=== PATIENT | male | born 1960 | race Hispanic/Latino ===

== ENCOUNTER 2017-02-01 10:51 | Emergency (ER) | payer OTHER ==
[2017-02-01 11:45] VITALS: TEMP 97.6; O2SAT 98
[2017-02-01 11:46] VITALS: RESP 18
[2017-02-01 11:47] VITALS: BMI 31.3
--- NOTE | 2017-02-01 11:54 | ED PDOC ---
Arrival/HPI - General Chief Complaint: Medical Clearance Time Seen by Provider: 02/01/17 11:45 Historian: Patient - History of Present Illness Narrative History of Present Illness (Text): 02/01/17 11:52 57 year old male with a past medical history that includes hypertension presents to the emergency department for repeat lab work after low platelet count at PMD yesterday. He states he had routine blood work done and was told his platelet count was 9000. 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 Patient states his PMD told him to come to the Emergency Department for further evaluation. Denies bleeding, bruising, or pain. PMD: Dr. Jimenez Modifying Factors (Text): None Associated Symptoms (Text): None Past Medical History - Provider Review Nursing Documentation Reviewed: Yes - Infectious Disease Hx of Infectious Diseases: None - Cardiac Hx Hypertension: Yes - Psychiatric Hx Substance Use: No - Surgical History Hx Splenectomy: Yes - Anesthesia Hx Anesthesia: Yes Hx Anesthesia Reactions: No Hx Malignant Hyperthermia: No Family/Social History - Physician Review Nursing Documentation Reviewed: Yes Family/Social History: Unknown Family HX Smoking Status: Heavy Smoker > 10 Cigarettes Daily Hx Alcohol Use: Yes Frequency of alcohol use: Socially Hx Substance Use: No Allergies/Home Meds Allergies/Adverse Reactions: Allergies No Known Allergies Allergy (Verified 11/06/16 08:44) Home Medications: Home Meds Medication Instructions Recorded Confirmed Lisinopril [Zestril] 10 mg PO DAILY 11/06/16 02/01/17 amLODIPine [Norvasc] 20 mg PO DAILY 11/06/16 02/01/17 Review of Systems - Review of Systems Eyes: absent: Vision Changes ENT: absent: Epistaxis Gastrointestinal: absent: Hematochezia, Hematemesis Genitourinary Male: absent: Hematuria Skin: absent: Rash Psychiatric: absent: Depression Physical Exam Vital Signs Reviewed: Yes Vital Signs Temp Pulse Resp BP Pulse Ox 02/01/17 12:39 79 18 135/76 98 02/01/17 11:45 97.6 F 87 18 137/82 98 02/01/17 11:37 97.6 F 87 19 137/82 98 Temperature: Afebrile Blood Pressure: Normal Pulse: Regular Respiratory Rate: Normal Appearance: Positive for: Well-Appearing, Non-Toxic, Comfortable Pain Distress: None Mental Status: Positive for: Alert and Oriented X 3 - Systems Exam Head: Present: Atraumatic, Normocephalic Pupils: Present: PERRL Extroacular Muscles: Present: EOMI Conjunctiva: Present: Normal Mouth: Present: Moist Mucous Membranes Neck: Present: Normal Range of Motion Respiratory/Chest: Present: Clear to Auscultation, Good Air Exchange. No: Respiratory Distress, Accessory Muscle Use Cardiovascular: Present: Regular Rate and Rhythm, Normal S1, S2. No: Murmurs Abdomen: Present: Normal Bowel Sounds. No: Tenderness, Distention, Peritoneal Signs Back: Present: Normal Inspection Upper Extremity: Present: Normal Inspection. No: Cyanosis, Edema Lower Extremity: Present: Normal Inspection. No: Edema Neurological: Present: GCS=15, CN II-XII Intact, Speech Normal Skin: Present: Warm, Dry, Normal Color. No: Rashes Psychiatric: Present: Alert, Oriented x 3, Normal Insight, Normal Concentration Medical Decision Making ED Course and Treatment: Impression: 57 year old male, pmhx hypertension, presents to the emergency department for repeat blood work after low platelet count at PMD yesterday. Differential diagnosis includes but is not limited to: Thrombocytopenia Plan: -- Platelet count manual -- Labs -- Reassess and disposition Progress Notes: 02/01/17 13:08 noted repeat thrombocytopenia, manual 55. pt unsure of previous levels outpt. pt denies any bleeding. pmd paged, unable to reach dr jimenez, as he is covered by dr hoover, who does not have access to outpt blood work. requested pt to be admitted. pt declines, AMA signed. understands risks Leaving Against Medical Advice (AMA): The patient is choosing to leave against medical advice. I have personally explained to the patient that choosing to do so may result in permanent bodily harm or . I have discussed at great length that without further evaluation and monitoring there may be unforeseen circumstances and/or deterioration causing permanent bodily harm or as a result of their choice. The patient is alert, oriented, and shows the mental capacity to make clear decisions regarding the patients health care at this time. The patient continues to wish to leave against medical advice. The patient has been advised that they should return to the emergency room immediately if they change their mind at any time, or if their condition begins to change or worsen in any way. - Lab Interpretations Lab Results: 02/01/17 12:00 02/01/17 12:00 Lab Results 02/01/17 12:40: Blood Type Confirm A POSITIVE 02/01/17 12:00: WBC 9.3, RBC 5.11, Hgb 16.1, Hct 46.4, MCV 90.8, MCH 31.5, MCHC 34.7, RDW 14.6 H, Plt Count 21 L*, Manual Plt Count 55 L*, Gran % 58.4, Lymph % (Auto) 22.7, [place] % (Auto) 14.6 H, Eos % (Auto) 3.4, Baso % (Auto) 0.9, Gran # 5.46, Lymph # 2.1, [place] # 1.4 H, Eos # 0.3, Baso # 0.08, Platelet Evaluation Low , PT 10.7, INR 0.99, APTT 28.7, Sodium 137, Potassium 4.2, Chloride 103, Carbon Dioxide 25, Anion Gap 13, BUN 16, Creatinine 0.7, Est GFR ( Amer) > 60, Est GFR (Non-Af Amer) > 60, Random Glucose 106, Calcium 9.4, Total Bilirubin 0.6 , AST 30, ALT 48, Alkaline Phosphatase 68, Total Protein 8.2, Albumin 4.3, Globulin 4.0, Albumin/Globulin Ratio 1.1, Blood Type A POSITIVE, Antibody Screen Negative, BBK History Checked No verified bt - Scribe Statement The provider has reviewed the documentation as recorded by the Jensen Smith Provider Scribe Attestation: All medical record entries made by the Jensen were at my direction and personally dictated by me. I have reviewed the chart and agree that the record accurately reflects my personal performance of the history, physical exam, medical decision making, and the department course for this patient. I have also personally directed, reviewed, and agree with the discharge instructions and disposition. Disposition/Present on Arrival - Present on Arrival Any Indicators Present on Arrival: No History of DVT/PE: No History of Uncontrolled Diabetes: No Urinary Catheter: No History of Decub. Ulcer: No History Surgical Site Infection Following: None - Disposition Have Diagnosis and Disposition been Completed?: Yes Diagnosis: Thrombocytopenia Disposition: AGAINST MEDICAL ADVICE Disposition Time: 13:10 Condition: UNKNOWN Discharge Instructions (ExitCare): Thrombocytopenia (ED) Additional Instructions: please follow up with your doctor/ and specialist. return to er with worsening symptoms or concerns. Referrals: Brad Jimenez MD [Primary Care Provider] - Follow up with primary Nadja Negrete MD [Staff Provider] - Follow up with primary
[2017-02-01 12:25] LABS: ADD MANUAL DIFF? NO
[2017-02-01 12:30] LABS: BASO # 0.08 K/mm3 (0.0-2.0); BASO % 0.9 % (0.0-3.0); EOS # 0.3 (0.0-0.7); EOS % 3.4 % (1.5-5.0); GRAN # 5.46 (1.4-6.5); GRAN % 58.4 % (50.0-68.0); HEMATOCRIT 46.4 % (42.0-52.0); LYMPH # 2.1 (1.2-3.4); LYMPH % 22.7 % (22.0-35.0); MEAN CELL VOLUME 90.8 fL (80.0-105.0); MEAN CORPUSCULAR HEMOGLOBIN 31.5 pg (25.0-35.0); MEAN CORPUSCULAR HGB CONC 34.7 g/dl (31.0-37.0); MONO # 1.4 (0.1-0.6); MONO % 14.6 % (1.0-6.0); RED CELL DISTRIBUTION WIDTH 14.6 % (11.5-14.5); WHITE BLOOD COUNT 9.3 10^3/ul (4.5-11.0)
[2017-02-01 12:37] LABS: ALB/GLOB RATIO 1.1 (1.1-1.8); ALKALINE PHOSPHATASE 68 U/L (38-133); ALT/SGPT 48 U/L (7-56); AST/SGOT 30 U/L (15-59); BILIRUBIN,TOTAL 0.6 mg/dL (0.2-1.3); BLOOD UREA NITROGEN 16 mg/dL (7-21); CALCIUM 9.4 mg/dL (8.4-10.5); CARBON DIOXIDE 25 mmol/L (21-33); CHLORIDE 103 mmol/L (98-107); GFR AFRICAN-AMERICAN > 60; GLUCOSE,RANDOM 106 mg/dL (70-110); INR 0.99 (0.93-1.08); PARTIAL THROMBOPLASTIN TIME 28.7 Seconds (23.7-30.8); POTASSIUM 4.2 mmol/L (3.6-5.0); SODIUM 137 mmol/L (132-148); TOTAL PROTEIN 8.2 g/dL (5.8-8.3)
[2017-02-01 12:39] VITALS: BP 135/76; PULSE 79
[2017-02-01 12:44] LABS: PLATELET COUNT 21 10^3/uL (120.0-450.0)
[2017-02-01 12:56] LABS: PLATELET ESTIMATE LOW (NORMAL)
== END 2017-02-01 13:10 | disposition left against medical advice (07) ==
LOC: ED 10:51
DX: D69.6 Thrombocytopenia, unspecified (principal); I10 Essential (primary) hypertension